=== PATIENT | female | born 1940 | race African-American/Black ===

== ENCOUNTER → 2016-05-27 | Outpatient (RCR) | payer MEDICARE, MEDICAID ==
[~2016-05-27] MED LIST: AMBIEN10 MG ORAL; AMBIEN10 MG PO; AMITRIPTYLINE H25 MG PO; ASPIRIN-LOW81 MG PO; BENAZEPRIL HCL20 MG PO; CIPRO250 MG ORAL; DIAZEPAM10 MG PO; DIAZEPAM5 MG PO; FLAGYL250 MG ORAL; GLUCOPHAGE500 MG PO; HYZAAR 100-12.1 EACH ORAL; LACTULOSE20 GM/301 ORAL; LEVAQUIN500 MG ORAL; METRONIDAZOLE500 MG ORAL; MIRALAX17 G2 ORAL; MORPHINE SULFAT60 MG PO; NORCO 10/3251 EA ORAL; NORVASC2.5 MG ORAL; ONDANSETRON ODT8 MG PO; SIMVASTATIN20 MG PO; SOMA350 MG PO; SULFASALAZINE500 MG ORAL; TYLENOL #31 TAB PO; sleeping pill PO
== END | disposition home or self-care (01) ==
LOC: PTY 10:30
DX: M54.6 Pain in thoracic spine (principal); M54.2 Cervicalgia
CPT/HCPCS: 97110; 97162; G0283; G8978; G8979

== ENCOUNTER 2016-06-10 10:04 | Outpatient (RCR) | payer MEDICARE, MEDICAID | END 2016-06-27 | disposition home or self-care (01) | LOC: PTY 10:04 | DX: M54.6 Pain in thoracic spine (principal) | CPT/HCPCS: 97110; G0283 ==

== ENCOUNTER 2016-07-01 10:30 | Outpatient (RCR) | payer MEDICARE, MEDICAID | END 2016-07-27 | disposition home or self-care (01) | LOC: PTY 10:30 | DX: M54.6 Pain in thoracic spine (principal); M54.2 Cervicalgia | CPT/HCPCS: 97110; G0283 ==

== ENCOUNTER 2016-08-05 09:30 | Outpatient (RCR) | payer MEDICARE, MEDICAID ==
[2016-08-13] MEDS ORDERED: DIOVAN HCT 1601 EAC1 ORAL (13:55)
[2016-08-13] MEDS ORDERED: AMLODIPINE BESYL5 MG ORAL (20:26)
[2016-08-13] MEDS ORDERED: POLYETHYLENE GL17 GM ORAL (20:35)
[2016-08-13] MEDS ORDERED: DIAZEPAM10 MG ORAL (20:39)
[2016-08-13] MEDS ORDERED: DIOVAN160 MG ORAL (20:40)
[2016-08-13] MEDS ORDERED: CELEBREX200 MG ORAL (20:40)
[2016-08-13] MEDS ORDERED: TIZANIDINE HCL4 MG ORAL (20:49)
[2016-08-13] MEDS ORDERED: MS CONTIN60 MG ORAL (20:49)
[2016-08-13] MEDS ORDERED: NORCO 10-325 T1 EACH ORAL (20:49)
[2016-08-13] MEDS ORDERED: LINZESS145 MCG PO (20:49)
[2016-08-13] MEDS ORDERED: ZOFRAN ODT8 MG ORAL (20:49)
[2016-08-13] MEDS ORDERED: SYSTANE 0.3-0.1 EAC1 OP (20:54)
[2016-08-13] MEDS ORDERED: RESTASIS1 EACH BOTH EYES (20:54)
[2016-08-13] MEDS ORDERED: OMEGA-31000 M1 PO (20:56)
[2016-08-15] MEDS ORDERED: CEFUROXIME500 MG PO (16:47)
== END 2016-08-27 | disposition home or self-care (01) ==
LOC: PTY 09:30
DX: M54.6 Pain in thoracic spine (principal); M54.2 Cervicalgia; R53.1 Weakness; M19.90 Unspecified osteoarthritis, unspecified site; Z96.659 Presence of unspecified artificial knee joint
CPT/HCPCS: 97110; G0283

== ENCOUNTER 2016-08-13 13:45 | Inpatient (IN) | payer MEDICARE, MEDICAID ==
[~2016-08-13] VITALS: Ht 160 cm; Wt 81.6 kg
[2016-08-13] MEDS ORDERED: DIOVAN HCT 1601 EAC1 ORAL (13:55)
[2016-08-13 14:01] VITALS: BP 137/79
[2016-08-13] MEDS ORDERED: Morphine Sulfate 4mg/ml Inj IVP ONE ×2 (14:30→17:15)
[2016-08-13 14:45] LABS: BASOPHILS % (AUTO) 1.3 % (0.0-2.0); EOSINOPHILS % (AUTO) 0.8 % (0.0-3.0); MEAN CORPUSCULAR HEMOGLOBIN 31.2 PG (27.0-31.0); MEAN CORPUSCULAR HGB CONC 32.6 G/DL (32.0-36.0); MEAN CORPUSCULAR VOLUME 96 FL (80-99); MONOCYTES % (AUTO) 16.6 % (1.0-10.0); NEUTROPHILS % (AUTO) 62.3 % (45.0-75.0); PLATELET COUNT 200 K/UL (150-450); RED BLOOD COUNT 4.29 M/UL (4.20-5.40); RED CELL DISTRIBUTION WIDTH 12.2 % (11.6-14.8); WHITE BLOOD COUNT 9.7 K/UL (4.8-10.8)
[2016-08-13 14:48] LABS: APPEARANCE,URINE TURBID; KETONES,URINE NEGATIVE (NEGATIVE); LEUKOCYTE ESTERASE ,URINE 3+ (NEGATIVE); NITRITE,URINE POSITIVE (NEGATIVE); PH,URINE 5 (4.5-8.0); PROTEIN,URINE 4+ (NEGATIVE); UROBILINOGEN,URINE NORMAL MG/DL (0.0-1.0)
[2016-08-13 14:59] LABS: ALANINE AMINOTRANSFERASE 15 U/L (3-33); ALBUMIN/GLOBULIN RATIO 0.9 (1.0-2.7); ANION GAP 12 (5-15); ASPARTATE AMINO TRANSFERASE 24 U/L (5-40); CALCIUM 9.4 mg/dL (8.6-10.2); CARBON DIOXIDE 27 mEQ/L (20-30); CHLORIDE 101 mEQ/L (98-107); CREATININE 1.1 mg/dL (0.5-0.9); HEMOLYSIS 54; LIPASE 39 U/L (< 60); POTASSIUM 4.5 mEQ/L (3.4-4.9); SODIUM 140 mEQ/L (135-145); TOTAL PROTEIN 7.7 g/dL (6.6-8.7)
[2016-08-13 15:16] LABS: BACTERIA,URINE MANY /HPF; SQUAMOUS EPITHELIAL CELL,UR FEW /LPF (NONE/OCC); WBC,URINE TNTC /HPF (0 - 2)
[2016-08-13 16:12] VITALS: BP 104/66
--- NOTE | 2016-08-13 18:11 | Emergency Room Report ---
History of Present Illness General Chief Complaint: Abdominal Pain Source: Patient Present Illness HPI 75-year-old female presents ED complaining of abdominal pain x5 days. Notes pain is left lower quadrant, sharp, 8/10, nonradiating. Notes nausea and vomiting. Notes some diarrhea. Patient notes history of diverticulitis. Notes some chills. Denies fever. Denies chest pain or shortness of breath. GI Dr Hughes for patient ED for evaluation. No other aggravating relieving factors. Denies any other associated symptoms Allergies: Coded Allergies: AMITRIPTYLINE (Verified Allergy, Unknown, ANXIETY, 07/11/16) Patient History Past Medical History: DM, HTN, other - diverticulitis Past Surgical History: none Pertinent Family History: none Social History: Denies: alcohol use, drug use, smoking Now: No Immunizations: UTD Reviewed Nursing Documentation: PMH: Agreed, PSxH: Agreed Nursing Documentation-PMH Past Medical History: No History, Except For Hx Cardiac Problems: Yes Hx Hypertension: Yes Hx Diabetes: Yes Hx Cancer: No Hx Gastrointestinal Problems: Yes - diverticulitis Hx Neurological Problems: No Hx Headaches: Yes Review of Systems All Other Systems: negative except mentioned in HPI Physical Exam Vital Signs Date Time Temp Pulse Resp B/P Pulse Ox O2 Delivery O2 Flow Rate FiO2 08/13/16 13:50 97.9 96 18 137/79 94 Room Air Sp02 EP Interpretation: reviewed, normal General Appearance: no apparent distress, alert, GCS 15, non-toxic Head: normocephalic Eyes: bilateral eye PERRL, bilateral eye normal inspection ENT: normal ENT inspection Neck: normal inspection Respiratory: chest non-tender, lungs clear, normal breath sounds, speaking full sentences Cardiovascular #1: regular rate, rhythm, no edema Gastrointestinal: normal bowel sounds, soft, non-distended, no guarding, no rebound, tenderness - LLQ Rectal: deferred Genitourinary: no CVA tenderness Musculoskeletal: normal inspection Neurologic: alert, oriented x3, responsive, motor strength/tone normal, sensory intact, speech normal Psychiatric: normal inspection Skin: normal inspection Lymphatic: normal inspection Medical Decision Making Diagnostic Impression: Primary Impression: UTI (urinary tract infection) Qualified Codes: N39.0 - Urinary tract infection, site not specified Additional Impression: Intractable abdominal pain ER Course Hospital Course 75-year-old female presents to ED complaining of lower abdominal pain, chills,. 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 After initial history and physical I ordered labs, IV fluids, UA, pain medication and CT scan Labs - no leukocytosis, Hb/Hct stable. electrolytes ok. UA shows + bacteria CT abdomen and pelvis - diverticulitis, no evidence of diverticulitis, no acute process Patient continues to have pain requiring additional round of pain medication. Notes nausea unable to tolerate by mouth intake. Discussed case with GI Dr. Hughes; he is also concerned about a possibility of ischemic colitis. Recommend antibiotics for UTI and IV fluids and n.p.o. PMD is Dr. Fowler; he asked that we admit patient to Dr. Doan Case discussed with Dr. Kaufman and he agreed to accept the patient to his service for further care and support I feel this is a highly complex case requiring extensive working including EKG/ Rhythm strip, Xray/CT/US, Blood/urine lab work, repeat exams while in ED, and administration of strong opiates/narcotics for pain control, admission to hospital or close patient follow up. Diagnosis - UTI, intractable abd pain Patient admitted to floor in serious condition Labs Test 08/13/16 14:05 08/13/16 14:15 08/13/16 14:19 Urine Color Yellow Urine Appearance Turbid Urine pH 5 (4.5-8.0) Urine Specific [place] 1.015 (1.005-1.035) Urine Protein 4+ (NEGATIVE) Urine Glucose (UA) Negative (NEGATIVE) Urine Ketones Negative (NEGATIVE) Urine Occult Blood 5+ (NEGATIVE) Urine Nitrite Positive (NEGATIVE) Urine Bilirubin Negative (NEGATIVE) Urine Urobilinogen Normal MG/DL (0.0-1.0) Urine Leukocyte Esterase 3+ (NEGATIVE) Urine RBC 5-10 /HPF (0 - 2) Urine WBC Tntc /HPF (0 - 2) Urine Squamous Epithelial Cells Few /LPF (NONE/OCC) Urine Bacteria Many /HPF (NONE) White Blood Count 9.7 K/UL (4.8-10.8) Red Blood Count 4.29 M/UL (4.20-5.40) Hemoglobin 13.4 G/DL (12.0-16.0) Hematocrit 41.1 % (37.0-47.0) Mean Corpuscular Volume 96 FL (80-99) Mean Corpuscular Hemoglobin 31.2 PG (27.0-31.0) Mean Corpuscular Hemoglobin Concent 32.6 G/DL (32.0-36.0) Red Cell Distribution Width 12.2 % (11.6-14.8) Platelet Count 200 K/UL (150-450) Mean Platelet Volume 8.0 FL (6.5-10.1) Neutrophils (%) (Auto) 62.3 % (45.0-75.0) Lymphocytes (%) (Auto) 19.0 % (20.0-45.0) Monocytes (%) (Auto) 16.6 % (1.0-10.0) Eosinophils (%) (Auto) 0.8 % (0.0-3.0) Basophils (%) (Auto) 1.3 % (0.0-2.0) Sodium Level 140 mEQ/L (135-145) Potassium Level 4.5 mEQ/L (3.4-4.9) Chloride Level 101 mEQ/L (98-107) Carbon Dioxide Level 27 mEQ/L (20-30) Anion Gap 12 (5-15) Blood Urea Nitrogen 27 mg/dL (7-23) Creatinine 1.1 mg/dL (0.5-0.9) Estimat Glomerular Filtration Rate mL/min (>60) Glucose Level 183 mg/dL (74-106) Calcium Level 9.4 mg/dL (8.6-10.2) Total Bilirubin 0.4 mg/dL (0.0-1.2) Aspartate Amino Transf (AST/SGOT) 24 U/L (5-40) Alanine Aminotransferase (ALT/SGPT) 15 U/L (3-33) Alkaline Phosphatase 67 U/L (35-104) Total Protein 7.7 g/dL (6.6-8.7) Albumin 3.7 g/dL (3.5-5.2) Globulin 4.0 g/dL Albumin/Globulin Ratio 0.9 (1.0-2.7) Lipase 39 U/L (< 60) CT/MRI/US Diagnostic Results CT/MRI/US Diagnostic Results : Imaging Test Ordered: CT A/P Impression diverticula, no diverticulitis. no other acute process identified Last Vital Signs Date Time Temp Pulse Resp B/P Pulse Ox O2 Delivery O2 Flow Rate FiO2 08/13/16 16:12 93 18 104/66 94 Room Air 08/13/16 16:12 97.9 Status: improved Disposition: ADMITTED INPATIENT Condition: Serious Referrals: DALJIT FOWLER (PCP) HEVER ALTAMIRANO M.D. August 13, 2016 18:11
[2016-08-13] MEDS ORDERED: cefTRIAXone 1 GM in NS 55 ML IVPB ONE (18:30)
[2016-08-13 19:11] VITALS: BP 111/71
[2016-08-13] MEDS ORDERED: AMLODIPINE BESYL5 MG ORAL (20:26)
[2016-08-13] MEDS ORDERED: Morphine Sulfate 2mg/ml Inj IVP PRN (20:30)
[2016-08-13] MEDS ORDERED: Morphine Sulfate 4mg/ml Inj IVP PRN ×2 (20:30→21:45)
[2016-08-13] MEDS ORDERED: Acetaminophen 650 MG SUPP RECTAL PRN (20:30)
[2016-08-13] MEDS ORDERED: POLYETHYLENE GL17 GM ORAL (20:35)
[2016-08-13] MEDS ORDERED: DIAZEPAM10 MG ORAL (20:39)
[2016-08-13] MEDS ORDERED: CELEBREX200 MG ORAL (20:40)
[2016-08-13] MEDS ORDERED: DIOVAN160 MG ORAL (20:40)
[2016-08-13] MEDS ORDERED: TIZANIDINE HCL4 MG ORAL (20:49)
[2016-08-13] MEDS ORDERED: LINZESS145 MCG PO (20:49)
[2016-08-13] MEDS ORDERED: ZOFRAN ODT8 MG ORAL (20:49)
[2016-08-13] MEDS ORDERED: NORCO 10-325 T1 EACH ORAL (20:49)
[2016-08-13] MEDS ORDERED: MS CONTIN60 MG ORAL (20:49)
[2016-08-13] MEDS ORDERED: SYSTANE 0.3-0.1 EAC1 OP (20:54)
[2016-08-13] MEDS ORDERED: RESTASIS1 EACH BOTH EYES (20:54)
[2016-08-13] MEDS ORDERED: OMEGA-31000 M1 PO (20:56)
[2016-08-13] MEDS: NovoLOG Insulin Flexpen SUBQ SCH (21:00)
[2016-08-13 21:59] VITALS: BP 138/66
[2016-08-13] MEDS: Morphine Sulfate 2mg/ml Inj IVP PRN (22:37)
--- NOTE | 2016-08-13 23:58 | General Progress Note ---
Assessment/Plan Assessment/Plan GI CONSULT Assessment - LLQ pain , possibly recurrent ischemic colitis - Diverticulosis - HTN - NIDDM - h/o diverticulitits - Melanosis Recommendations - IVF - follow abd exam - clear liquids - laxative Subjective Allergies: Coded Allergies: AMITRIPTYLINE (Verified Allergy, Unknown, ANXIETY, 07/11/16) Objective Last 24 Hour Vital Signs Date Time Temp Pulse Resp B/P Pulse Ox O2 Delivery O2 Flow Rate FiO2 08/13/16 21:59 97.9 86 18 138/66 95 Room Air 08/13/16 21:22 73 14 128/85 99 Room Air 08/13/16 19:11 89 18 111/71 99 Room Air 08/13/16 19:04 97.9 08/13/16 16:12 93 18 104/66 94 Room Air 08/13/16 16:12 97.9 08/13/16 14:01 97.9 18 137/79 94 Room Air 08/13/16 13:50 97.9 96 18 137/79 94 Room Air Laboratory Tests 08/13/16 14:05: Urine Color Yellow, Urine Appearance Turbid, Urine pH 5, Urine Specific [place] 1.015, Urine Protein 4+H, Urine Glucose (UA) Negative, Urine Ketones Negative, Urine Occult Blood 5+H, Urine Nitrite PositiveH, Urine Bilirubin Negative, Urine Urobilinogen Normal, Urine Leukocyte Esterase 3+H, Urine RBC 5-10H, Urine WBC TntcH, Urine Squamous Epithelial Cells Few, Urine Bacteria ManyH 08/13/16 14:15: White Blood Count 9.7, Red Blood Count 4.29, Hemoglobin 13.4, Hematocrit 41.1, Mean Corpuscular Volume 96, Mean Corpuscular Hemoglobin 31.2H, Mean Corpuscular Hemoglobin Concent 32.6, Red Cell Distribution Width 12.2, Platelet Count 200, Mean Platelet Volume 8.0, Neutrophils (%) (Auto) 62.3, Lymphocytes (%) (Auto) 19.0L, Monocytes (%) (Auto) 16.6H, Eosinophils (%) (Auto) 0.8, Basophils (%) ( Auto) 1.3 08/13/16 14:19: Sodium Level 140, Potassium Level 4.5, Chloride Level 101, Carbon Dioxide Level 27, Anion Gap 12, Blood Urea Nitrogen 27H, Creatinine 1.1H, Estimat Glomerular Filtration Rate , Glucose Level 183H, Calcium Level 9.4, Total Bilirubin 0.4, Aspartate Amino Transf (AST/SGOT) 24, Alanine Aminotransferase (ALT/SGPT) 15, Alkaline Phosphatase 67, Total Protein 7.7, Albumin 3.7, Globulin 4.0, Albumin/ Globulin Ratio 0.9L, Lipase 39 08/13/16 21:15: Lactic Acid Level 0.80 Height (Feet): 5 Height (Inches): 3.00 Weight (Pounds): 180 PATY VENTURA August 13, 2016 23:58
[2016-08-14] VITALS: BP_SYST 110; BP_SYST 124; BP_DIAS 54; BP_DIAS 80
[2016-08-14 04:00] VITALS: BP 104/74
[2016-08-14] MEDS: Morphine Sulfate 2mg/ml Inj IVP PRN (04:18)
--- NOTE | 2016-08-14 05:41 | Consultation ---
DATE OF CONSULTATION: 08/13/2016 GASTROLOGY CONSULTATION CHIEF COMPLAINT: The patient is being admitted for abdominal pain. HISTORY OF PRESENT ILLNESS: The patient is a pleasant 75-year-old woman, who came to my office today for a 5-day history of feeling sick. She states that she feels lightheaded, nauseous, and has lower left-sided abdominal pain. She had some blood streaks from the toilet paper when she wipes it. She was unable to keep much fluid down. She was examined and also was found to have left lower quadrant tenderness to palpation. Previously, she has had a history of some diverticulosis, which was seen on CT scan and also colonoscopy. She also was found to have left-sided course of granular mucosa consistent with ischemic colitis. This was about a year ago where she was felt to have ischemic colitis or diverticulitis and therefore sent to the emergency room where she underwent evaluation with CT scan. There was no obvious diverticulitis on CT scan, but the patient was readmitted for hydration for possibility of recurrent ischemic colitis. PAST MEDICAL HISTORY: History of ischemic colitis, history of diverticulosis, hypertension, mxi-ecmzqya-[id number] diabetes mellitus, history of anxiety, and history of melanosis. PAST SURGICAL HISTORY: Status post arthroscopic knee surgery bilaterally and history of laparoscopic cholecystectomy. ALLERGIES: None. OUTPATIENT MEDICATIONS: Include metformin, MiraLax, Linzess, simvastatin, Celebrex, aspirin, Valsartan, and morphine. FAMILY HISTORY: Noncontributory. SOCIAL HISTORY: The patient does not smoke or drink alcohol. REVIEW OF SYSTEMS: Otherwise negative. PHYSICAL EXAMINATION: GENERAL: This is a pleasant woman, seen in the office and subsequently was admitted to the hospital. HEENT: Normocephalic and atraumatic. Sclerae anicteric. Oropharynx is clear. NECK: Supple. CHEST: Clear to auscultation. CARDIOVASCULAR: Revealed regular rate. ABDOMEN: Soft. Good bowel sounds. There is no organomegaly. There was definite left lower quadrant tenderness to palpation without significant rebound or guarding. EXTREMITIES: Revealed no edema. NEUROLOGIC: Nonfocal. LABORATORY DATA: Data from the hospital where CT scan was noted. ASSESSMENT: This patient presents with left lower quadrant abdominal pain and diverticulosis, but without radiographic evidence of diverticulitis. Given the nausea and the left-sided pain, the patient may have recurrent colonic ischemia. disease because of poor oral hydration and oral intake. The patient should be admitted to the hospital for intravenous hydration and followup examinations. Should she improve, then she can be discharged home on oral hydration therapy. The antibiotics can be given for urinary tract infection as well. RECOMMENDATIONS: Per above discussion and per orders written in the chart. Thank you for asking me to participate in the care of this patient patient. Anne Hughes M.D. DR: JONES JOB#: [id number] CC:
[2016-08-14] MEDS: NovoLOG Insulin Flexpen SUBQ SCH ×4 (06:19→21:00)
--- NOTE | 2016-08-14 07:51 | General Progress Note ---
Assessment/Plan Assessment/Plan Assessment - LLQ pain , possibly recurrent ischemic colitis - Diverticulosis - HTN - NIDDM - h/o diverticulitits - Melanosis Recommendations - IVF - follow abd exam - clear liquids - laxative Subjective Allergies: Coded Allergies: AMITRIPTYLINE (Verified Allergy, Unknown, ANXIETY, 07/11/16) Subjective Feels better less abd pain Objective Last 24 Hour Vital Signs Date Time Temp Pulse Resp B/P Pulse Ox O2 Delivery O2 Flow Rate FiO2 08/14/16 04:00 98.2 96 18 104/74 93 Room Air 08/14/16 00:00 97.3 95 18 124/80 99 Room Air 08/14/16 00:00 99.0 77 18 110/54 94 Room Air 08/13/16 21:59 97.9 86 18 138/66 95 Room Air 08/13/16 21:22 73 14 128/85 99 Room Air 08/13/16 19:11 89 18 111/71 99 Room Air 08/13/16 19:04 97.9 08/13/16 16:12 93 18 104/66 94 Room Air 08/13/16 16:12 97.9 08/13/16 14:01 97.9 18 137/79 94 Room Air 08/13/16 13:50 97.9 96 18 137/79 94 Room Air Intake and Output 08/13/16 08/14/16 19:00 07:00 Intake Total 0 ml 580 ml Balance 0 ml 580 ml Intake Oral 0 ml IV Total 580 ml # Voids 1 Laboratory Tests 08/13/16 14:05: Urine Color Yellow, Urine Appearance Turbid, Urine pH 5, Urine Specific [place] 1.015, Urine Protein 4+H, Urine Glucose (UA) Negative, Urine Ketones Negative, Urine Occult Blood 5+H, Urine Nitrite PositiveH, Urine Bilirubin Negative, Urine Urobilinogen Normal, Urine Leukocyte Esterase 3+H, Urine RBC 5-10H, Urine WBC TntcH, Urine Squamous Epithelial Cells Few, Urine Bacteria ManyH 08/13/16 14:15: White Blood Count 9.7, Red Blood Count 4.29, Hemoglobin 13.4, Hematocrit 41.1, Mean Corpuscular Volume 96, Mean Corpuscular Hemoglobin 31.2H, Mean Corpuscular Hemoglobin Concent 32.6, Red Cell Distribution Width 12.2, Platelet Count 200, Mean Platelet Volume 8.0, Neutrophils (%) (Auto) 62.3, Lymphocytes (%) (Auto) 19.0L, Monocytes (%) (Auto) 16.6H, Eosinophils (%) (Auto) 0.8, Basophils (%) ( Auto) 1.3 08/13/16 14:19: Sodium Level 140, Potassium Level 4.5, Chloride Level 101, Carbon Dioxide Level 27, Anion Gap 12, Blood Urea Nitrogen 27H, Creatinine 1.1H, Estimat Glomerular Filtration Rate , Glucose Level 183H, Calcium Level 9.4, Total Bilirubin 0.4, Aspartate Amino Transf (AST/SGOT) 24, Alanine Aminotransferase (ALT/SGPT) 15, Alkaline Phosphatase 67, Total Protein 7.7, Albumin 3.7, Globulin 4.0, Albumin/ Globulin Ratio 0.9L, Lipase 39 08/13/16 21:15: Lactic Acid Level 0.80 Height (Feet): 5 Height (Inches): 3.00 Weight (Pounds): 180 Objective WDWN AA woman NCAT supple CTA RRR soft ND milder/less LLQ TTP no edema nonfocal PATY VENTURA August 14, 2016 07:51
[2016-08-14 07:56] VITALS: BP 102/60
[2016-08-14] MEDS ORDERED: Sorbitol Solution UD 30ml ORAL ONE (08:00)
[2016-08-14 08:11] LABS: BASOPHILS % (AUTO) 1.5 % (0.0-2.0); LYMPHOCYTES % (AUTO) 30.5 % (20.0-45.0); MEAN CORPUSCULAR HEMOGLOBIN 30.9 PG (27.0-31.0); MEAN CORPUSCULAR HGB CONC 32.9 G/DL (32.0-36.0); MEAN CORPUSCULAR VOLUME 94 FL (80-99); MONOCYTES % (AUTO) 18.4 % (1.0-10.0); NEUTROPHILS % (AUTO) 47.6 % (45.0-75.0); PLATELET COUNT 191 K/UL (150-450); RED BLOOD COUNT 3.97 M/UL (4.20-5.40); RED CELL DISTRIBUTION WIDTH 12.1 % (11.6-14.8); WHITE BLOOD COUNT 8.5 K/UL (4.8-10.8)
[2016-08-14 08:17] LABS: ANION GAP 15 (5-15); CALCIUM 9.1 mg/dL (8.6-10.2); CARBON DIOXIDE 23 mEQ/L (20-30); CHLORIDE 105 mEQ/L (98-107); HEMOLYSIS 2; POTASSIUM 4.5 mEQ/L (3.4-4.9); SODIUM 143 mEQ/L (135-145)
--- NOTE | 2016-08-14 08:52 | History and Physical ---
History of Present Illness General Date patient seen: August 14, 2016 Time patient seen: 08:52 Reason for Hospitalization: Abdominal Pain Present Illness Allergies: Coded Allergies: AMITRIPTYLINE (Verified Allergy, Unknown, ANXIETY, 07/11/16) Medication History Scheduled Amlodipine Besylate* (Amlodipine Besylate*), 5 MG ORAL DAILY, (Reported) Aspirin (Aspirin EC), 81 MG PO DAILY, (Reported) Celecoxib* (Celebrex*), 200 MG ORAL DAILY, (Reported) Cyclosporine (Restasis), 1 DROP BOTH EYES EVERY 12 HOURS, (Reported) Linaclotide (Linzess), 145 MCG PO EVERY OTHER DAY, (Reported) Metformin Hcl* (Glucophage*), 500 MG PO BID, (Reported) [place]-3 Fatty Acids ([place]-3), 1,000 MG PO DAILY, (Reported) Polyethylene Glycol 3350* (Polyethylene Glycol 3350*), 17 GM ORAL EVERY OTHER DAY, (Reported) Simvastatin (Zocor), 20 MG PO QHS, (Reported) Sulfasalazine* (Azulfidine*), 1,500 MG ORAL BID, (Reported) Tizanidine Hcl* (Zanaflex*), 4 MG ORAL THREE TIMES A DAY, (Reported) Valsartan (Diovan), 160 MG ORAL DAILY, (Reported) Scheduled PRN Diazepam* (Diazepam*), 10 MG ORAL for For Anxiety, (Reported) Hydrocodone Bit/Acetaminophen 10-325* ([place] 10-325*), 1 TAB ORAL for For Pain, (Reported) Morphine Sulfate* (Ms Contin*), 60 MG ORAL for For Pain, (Reported) Ondansetron Odt* (Zofran Odt*), 8 MG ORAL for Nausea & Vomiting, (Reported) Propylene Glycol/Peg 400/Pf (Systane 0.3-0.4% Eye Drops), 1 EACH OP FOUR TIMES A DAY PRN for Dry Eyes, (Reported) Zolpidem Tartrate* (Ambien*), 10 MG ORAL BEDTIME PRN for Insomnia, (Reported) Discontinued Medications Ciprofloxacin HCl (Cipro), 250 MG ORAL BID, (Reported) Discontinued Reason: Therapy completed Patient History Healthcare decision maker self Resuscitation status Full Code Advanced Directive on File No Physical Exam Last 24 Hour Vital Signs Date Time Temp Pulse Resp B/P Pulse Ox O2 Delivery O2 Flow Rate FiO2 08/14/16 07:56 98.1 76 22 102/60 97 Room Air 08/14/16 04:00 98.2 96 18 104/74 93 Room Air 08/14/16 00:00 97.3 95 18 124/80 99 Room Air 08/14/16 00:00 99.0 77 18 110/54 94 Room Air 08/13/16 21:59 97.9 86 18 138/66 95 Room Air 08/13/16 21:22 73 14 128/85 99 Room Air 08/13/16 19:11 89 18 111/71 99 Room Air 08/13/16 19:04 97.9 08/13/16 16:12 93 18 104/66 94 Room Air 08/13/16 16:12 97.9 08/13/16 14:01 97.9 18 137/79 94 Room Air 08/13/16 13:50 97.9 96 18 137/79 94 Room Air Intake and Output 08/13/16 08/14/16 19:00 07:00 Intake Total 0 ml 580 ml Balance 0 ml 580 ml Intake Oral 0 ml IV Total 580 ml # Voids 1 Laboratory Tests Test 08/13/16 14:05 08/13/16 14:15 08/13/16 14:19 08/13/16 21:15 Urine Color Yellow Urine Appearance Turbid Urine pH 5 (4.5-8.0) Urine Specific [place] 1.015 (1.005-1.035) Urine Protein 4+ (NEGATIVE) H Urine Glucose (UA) Negative (NEGATIVE) Urine Ketones Negative (NEGATIVE) Urine Occult Blood 5+ (NEGATIVE) H Urine Nitrite Positive (NEGATIVE) H Urine Bilirubin Negative (NEGATIVE) Urine Urobilinogen Normal MG/DL (0.0-1.0) Urine Leukocyte Esterase 3+ (NEGATIVE) H Urine RBC 5-10 /HPF (0 - 2) H Urine WBC Tntc /HPF (0 - 2) H Urine Squamous Epithelial Cells Few /LPF (NONE/OCC) Urine Bacteria Many /HPF (NONE) H White Blood Count 9.7 K/UL (4.8-10.8) Red Blood Count 4.29 M/UL (4.20-5.40) Hemoglobin 13.4 G/DL (12.0-16.0) Hematocrit 41.1 % (37.0-47.0) Mean Corpuscular Volume 96 FL (80-99) Mean Corpuscular Hemoglobin 31.2 PG (27.0-31.0) H Mean Corpuscular Hemoglobin Concent 32.6 G/DL (32.0-36.0) Red Cell Distribution Width 12.2 % (11.6-14.8) Platelet Count 200 K/UL (150-450) Mean Platelet Volume 8.0 FL (6.5-10.1) Neutrophils (%) (Auto) 62.3 % (45.0-75.0) Lymphocytes (%) (Auto) 19.0 % (20.0-45.0) L Monocytes (%) (Auto) 16.6 % (1.0-10.0) H Eosinophils (%) (Auto) 0.8 % (0.0-3.0) Basophils (%) (Auto) 1.3 % (0.0-2.0) Sodium Level 140 mEQ/L (135-145) Potassium Level 4.5 mEQ/L (3.4-4.9) Chloride Level 101 mEQ/L (98-107) Carbon Dioxide Level 27 mEQ/L (20-30) Anion Gap 12 (5-15) Blood Urea Nitrogen 27 mg/dL (7-23) H Creatinine 1.1 mg/dL (0.5-0.9) H Estimat Glomerular Filtration Rate mL/min (>60) Glucose Level 183 mg/dL (74-106) H Calcium Level 9.4 mg/dL (8.6-10.2) Total Bilirubin 0.4 mg/dL (0.0-1.2) Aspartate Amino Transf (AST/SGOT) 24 U/L (5-40) Alanine Aminotransferase (ALT/SGPT) 15 U/L (3-33) Alkaline Phosphatase 67 U/L (35-104) Total Protein 7.7 g/dL (6.6-8.7) Albumin 3.7 g/dL (3.5-5.2) Globulin 4.0 g/dL Albumin/Globulin Ratio 0.9 (1.0-2.7) L Lipase 39 U/L (< 60) Lactic Acid Level 0.80 mmol/L (0.66-2.22) Test 08/14/16 07:35 White Blood Count 8.5 K/UL (4.8-10.8) Red Blood Count 3.97 M/UL (4.20-5.40) L Hemoglobin 12.3 G/DL (12.0-16.0) Hematocrit 37.4 % (37.0-47.0) Mean Corpuscular Volume 94 FL (80-99) Mean Corpuscular Hemoglobin 30.9 PG (27.0-31.0) Mean Corpuscular Hemoglobin Concent 32.9 G/DL (32.0-36.0) Red Cell Distribution Width 12.1 % (11.6-14.8) Platelet Count 191 K/UL (150-450) Mean Platelet Volume 8.0 FL (6.5-10.1) Neutrophils (%) (Auto) 47.6 % (45.0-75.0) Lymphocytes (%) (Auto) 30.5 % (20.0-45.0) Monocytes (%) (Auto) 18.4 % (1.0-10.0) H Eosinophils (%) (Auto) 2.0 % (0.0-3.0) Basophils (%) (Auto) 1.5 % (0.0-2.0) Sodium Level 143 mEQ/L (135-145) Potassium Level 4.5 mEQ/L (3.4-4.9) Chloride Level 105 mEQ/L (98-107) Carbon Dioxide Level 23 mEQ/L (20-30) Anion Gap 15 (5-15) Blood Urea Nitrogen 20 mg/dL (7-23) Creatinine 1.0 mg/dL (0.5-0.9) H Estimat Glomerular Filtration Rate mL/min (>60) Glucose Level 126 mg/dL (74-106) H Lactic Acid Level 0.60 mmol/L (0.66-2.22) L Calcium Level 9.1 mg/dL (8.6-10.2) Microbiology Date/Time Source Procedure Growth Status 08/13/16 14:05 Urine,Clean Catch Urine Culture - Preliminary Gram Negative Bacillus 1 Resulted Height (Feet): 5 Height (Inches): 3.00 Weight (Pounds): 180 Medications Current Medications Medications (Trade) Dose Ordered Sig/Janna Route PRN Reason Start Time Stop Time Status Last Admin Dose Admin Acetaminophen (Tylenol) 650 mg PRN PRN RECTAL Mild Pain/Temp > 100.5 08/13/16 20:30 09/12/16 20:29 Ceftriaxone Sodium/Dextrose (Rocephin/D5W) 55 ml @ 110 mls/hr Q24H IVPB 08/14/16 18:00 08/21/16 17:59 Dextrose (Dextrose 50%) STAT PRN IV Hypoglycemia 08/13/16 20:30 09/12/16 20:29 Diphenhydramine HCl (Benadryl) 25 mg Q6H PRN ORAL Itching/Pruritis 08/13/16 20:30 09/12/16 20:29 08/13/16 22:36 Insulin Aspart (NovoLOG) BEFORE MEALS AND HS SUBQ 08/13/16 21:00 09/12/16 20:59 Morphine Sulfate (Morphine Sulfate) 2 mg Q4H PRN IVP Moderate Pain (Pain Scale 4-6) 08/13/16 21:45 08/20/16 21:44 08/14/16 04:18 Morphine Sulfate 4 mg 4 mg Q4H PRN IVP SEVERE PAIN 08/13/16 21:45 08/20/16 21:44 Ondansetron HCl (Zofran) 4 mg Q6H PRN IVP Nausea & Vomiting 08/13/16 20:30 09/12/16 20:29 Sodium Chloride (Sodium Chloride 1000ml bag) 1,000 ml @ 75 mls/hr [id number] IVLG 08/13/16 22:00 09/12/16 21:59 08/13/16 22:38 Audelia King M.D. August 14, 2016 08:52
--- NOTE | 2016-08-14 09:53 | Diagnostic Imaging Report ---
Indications: Abdominal pain Technique: Continuous helical CT imaging of the abdomen and pelvis was performed with automatic exposure control following administration of oral and intravenous nonionic iodine contrast, on a Siemens sensation [address] scanner. Axial, coronal, and sagittal images were reconstructed at 5 mm slice thickness. CTDI volume(s): 19 mGy Total DLP: 968 mGy-cm Findings: Comparison: 05/10/2015, 12/13/2014, 10/23/2014, 08/21/2014 Oral contrast has passed throughout the gastrointestinal tract to the level of mid to distal small bowel. Entire tract remains nondilated. Appendix not identified. Moderate colonic fecal content. Multiple left colonic diverticula. No obvious mural thickening, adjacent stranding, extraluminal gas or fluid collections. Absence of gallbladder, bile duct dilation to ampulla of Vater without obvious stone or mass, bilateral renal cortical low-attenuation foci compatible with cysts, diffuse arteriosclerotic plaquing, 2.8 cm fusiform ectasia of the infrarenal abdominal aorta all unchanged. Remainder visualized abdominopelvic anatomy demonstrates no other obvious acute abnormality. Small irregular pleural-based linear densities again noted in both lung bases. Degenerative changes again noted in lumbar, lower thoracic spine. IMPRESSION: No evidence of acute abdominopelvic disease, unchanged Stable chronic changes as described This correlates with [facility] preliminary report.
[2016-08-14 11:46] VITALS: BP 112/62
[2016-08-14 15:53] VITALS: BP 132/64
[2016-08-14] MEDS ORDERED: Zolpidem 5mg tab ORAL PRN (18:00)
[2016-08-14] MEDS: cefTRIAXone 1gm/D5W 55ml IVPB SCH ×2 (18:28)
[2016-08-14 21:00] VITALS: BP 161/64
[2016-08-15 00:45] VITALS: BP 136/71
[2016-08-15 04:00] VITALS: BP 155/84
[2016-08-15] MEDS: NovoLOG Insulin Flexpen SUBQ SCH ×3 (06:17→16:15)
[2016-08-15 08:00] VITALS: BP 133/69
[2016-08-15 12:01] VITALS: BP 146/68
[2016-08-15 16:00] VITALS: BP 132/68
[2016-08-15] MEDS ORDERED: CEFUROXIME500 MG PO (16:47)
--- NOTE | 2016-08-15 16:50 | Discharge Summary ---
Discharge Summary Hospital Course Date of Admission August 13, 2016 at 19:09 Date of Discharge 08/15/16 Admitting Diagnosis UTI, colitis HPI Sabina Blood is a 75 year old female who was admitted on August 13, 2016 at 19: 09 for Urinary Tract Infection, Colitis Discharge Discharge Disposition Patient was discharged to Discharge Diagnoses: Audelia King M.D. August 15, 2016 16:50
[2016-08-15] MEDS: cefTRIAXone 1gm/D5W 55ml IVPB SCH ×2 (17:58)
--- NOTE | 2016-08-15 18:17 | General Progress Note ---
Assessment/Plan Assessment/Plan Assessment - LLQ pain , possibly recurrent ischemic colitis - Diverticulosis - HTN - NIDDM - h/o diverticulitis - Melanosis Recommendations - push po fluids - follow abd exam - d/c planning - outpt f/u Subjective Allergies: Coded Allergies: AMITRIPTYLINE (Verified Allergy, Unknown, ANXIETY, 07/11/16) Subjective Feels better abd pain nearly resolved tolerating PO Objective Last 24 Hour Vital Signs Date Time Temp Pulse Resp B/P Pulse Ox O2 Delivery O2 Flow Rate FiO2 08/15/16 16:00 98.1 64 20 132/68 95 Room Air 08/15/16 12:01 98.1 58 20 146/68 95 Room Air 08/15/16 08:00 97.9 75 19 133/69 94 Room Air 08/15/16 04:00 99.0 100 18 155/84 100 Room Air 08/15/16 00:45 98.4 77 20 136/71 97 Room Air 08/15/16 00:45 98.4 08/14/16 21:00 97.5 63 20 161/64 99 Room Air Intake and Output 08/14/16 08/15/16 19:00 07:00 Intake Total 1315 ml 750 ml Balance 1315 ml 750 ml Intake Oral 960 ml 150 ml IV Total 355 ml 600 ml # Voids 3 2 # Bowel Movements 1 5 Height (Feet): 5 Height (Inches): 3.00 Weight (Pounds): 180 Objective WDWN AA woman NCAT supple CTA RRR soft ND milder/less LLQ TTP no edema nonfocal PATY VENTURA August 15, 2016 18:17
== END 2016-08-15 18:51 | disposition home or self-care (01) | DRG 394 ==
LOC: EMR 14:53 → 4E 19:09 → EDBEDREQ 20:06
DX: K55.9 Vascular disorder of intestine, unspecified (principal); N39.0 Urinary tract infection, site not specified; E11.9 Type 2 diabetes mellitus without complications; K57.90 Diverticulosis of intestine, part unspecified, without perforation or abscess without bleeding; I10 Essential (primary) hypertension; L81.4 Other melanin hyperpigmentation; Z88.8 Allergy status to other drugs, medicaments and biological substances; F41.9 Anxiety disorder, unspecified; R10.32 Left lower quadrant pain
CPT/HCPCS: 36415; 74177; 80048; 80053; 81003; 82962; 83605; 83690; 85025; 87086; 87181; J1815; J2405

== ENCOUNTER 2016-09-09 10:30 | Outpatient (RCR) | payer MEDICARE, MEDICAID ==
[~2016-09-09 10:30] MED LIST changes: +AMLODIPINE BESYL5 MG ORAL; +CEFUROXIME500 MG PO; +CELEBREX200 MG ORAL; +DIAZEPAM10 MG ORAL; +DIOVAN HCT 1601 EAC1 ORAL; +DIOVAN160 MG ORAL; +LINZESS145 MCG PO; +MS CONTIN60 MG ORAL; +NORCO 10-325 T1 EACH ORAL; +OMEGA-31000 M1 PO; +POLYETHYLENE GL17 GM ORAL; +RESTASIS1 EACH BOTH EYES; +SYSTANE 0.3-0.1 EAC1 OP; +TIZANIDINE HCL4 MG ORAL; +ZOFRAN ODT8 MG ORAL
== END 2016-09-26 | disposition home or self-care (01) ==
LOC: PTY 10:30
DX: M54.6 Pain in thoracic spine (principal); M54.2 Cervicalgia; R53.1 Weakness; M19.90 Unspecified osteoarthritis, unspecified site; Z96.659 Presence of unspecified artificial knee joint; K57.90 Diverticulosis of intestine, part unspecified, without perforation or abscess without bleeding; E11.9 Type 2 diabetes mellitus without complications
CPT/HCPCS: 97110; 97161; G0283; G8978; G8979

== ENCOUNTER 2016-11-18 11:00 | Outpatient (RCR) | payer MEDICARE, MEDICAID | END 2016-11-27 | disposition home or self-care (01) | LOC: PTY 11:00 | DX: M54.6 Pain in thoracic spine (principal); M54.2 Cervicalgia; R53.1 Weakness; M19.90 Unspecified osteoarthritis, unspecified site; E11.9 Type 2 diabetes mellitus without complications; Z79.84 Long term (current) use of oral hypoglycemic drugs; I10 Essential (primary) hypertension; Z96.659 Presence of unspecified artificial knee joint | CPT/HCPCS: 97110; G0283; G8978; G8979 ==

== ENCOUNTER 2016-12-23 11:00 | Outpatient (RCR) | payer MEDICARE, MEDICAID | END 2016-12-27 | disposition home or self-care (01) | LOC: PTY 11:00 | DX: M54.6 Pain in thoracic spine (principal); M54.2 Cervicalgia; R53.1 Weakness; M19.90 Unspecified osteoarthritis, unspecified site; E11.9 Type 2 diabetes mellitus without complications; Z79.84 Long term (current) use of oral hypoglycemic drugs; I10 Essential (primary) hypertension; Z96.659 Presence of unspecified artificial knee joint | CPT/HCPCS: 97110; G0283 ==

== ENCOUNTER 2017-01-06 10:21 | Outpatient (RCR) | payer MEDICARE, MEDICAID | END 2017-01-27 | disposition home or self-care (01) | LOC: PTY 10:21 | DX: M54.6 Pain in thoracic spine (principal); M54.2 Cervicalgia; M19.90 Unspecified osteoarthritis, unspecified site; E11.9 Type 2 diabetes mellitus without complications; I10 Essential (primary) hypertension; Z96.659 Presence of unspecified artificial knee joint | CPT/HCPCS: 97110; G0283; G8979; G8980 ==

== ENCOUNTER 2017-07-16 10:59 | Emergency (ER) | payer MEDICARE, MEDICAID ==
[~2017-07-16] VITALS: Ht 160 cm; Wt 81.6 kg
[2017-07-16] MEDS ORDERED: Morphine Sulfate 2mg/ml Inj IVP ONE (11:45)
[2017-07-16 12:43] LABS: BASOPHILS % (AUTO) 1.5 % (0.0-2.0); EOSINOPHILS % (AUTO) 0.5 % (0.0-3.0); HEMATOCRIT 38.9 % (37.0-47.0); HEMOGLOBIN 13.2 G/DL (12.0-16.0); LYMPHOCYTES % (AUTO) 27.1 % (20.0-45.0); MEAN CORPUSCULAR VOLUME 93 FL (80-99); MONOCYTES % (AUTO) 6.9 % (1.0-10.0); NEUTROPHILS % (AUTO) 64.1 % (45.0-75.0); PLATELET COUNT 212 K/UL (150-450); RED CELL DISTRIBUTION WIDTH 13.1 % (11.6-14.8); WHITE BLOOD COUNT 5.4 K/UL (4.8-10.8)
[2017-07-16 12:43] LABS: BILIRUBIN, URINE NEGATIVE (NEGATIVE); COLOR,URINE PALE YELLOW; GLUCOSE, URINE (UA) NEGATIVE (NEGATIVE); KETONES,URINE NEGATIVE (NEGATIVE); LEUKOCYTE ESTERASE ,URINE 1+ (NEGATIVE); NITRITE,URINE NEGATIVE (NEGATIVE); PH,URINE 7 (4.5-8.0); PROTEIN,URINE 3+ (NEGATIVE); UROBILINOGEN,URINE NORMAL MG/DL (0.0-1.0)
[2017-07-16 12:44] LABS: APPEARANCE,URINE SLIGHTLY CLOUDY
[2017-07-16 12:55] LABS: ANION GAP 7 mmol/L (5-15); BLOOD UREA NITROGEN 20 mg/dL (7-18); CALCIUM 9.7 MG/DL (8.5-10.1); CARBON DIOXIDE 29 MMOL/L (21-32); CHLORIDE 105 MMOL/L (98-107); POTASSIUM 3.8 MMOL/L (3.5-5.1); SODIUM 141 MMOL/L (136-145)
[2017-07-16 13:00] LABS: ALANINE AMINOTRANSFERASE 17 U/L (12-78); ALBUMIN 3.7 G/DL (3.4-5.0); ALBUMIN/GLOBULIN RATIO 0.9 (1.0-2.7); ALKALINE PHOSPHATASE 75 U/L (46-116); ASPARTATE AMINO TRANSFERASE 19 U/L (15-37); BILIRUBIN,TOTAL 0.4 MG/DL (0.2-1.0); CREATINE KINASE 76 U/L (26-308)
[2017-07-16 13:24] VITALS: BP 158/74
--- NOTE | 2017-07-16 14:11 | Diagnostic Imaging Report ---
Indication: Abdominal pain Technique: Supine view of the abdomen Comparison: none Findings: Gas pattern is unremarkable. There are degenerative changes of the lumbar spine. No unusual masses or calcifications Impression: No acute process
--- NOTE | 2017-07-16 14:12 | Diagnostic Imaging Report ---
Indication: Cough Technique: One view of the chest Comparison: Findings: Lungs and pleural spaces are clear. Heart size is normal. Aorta is slightly tortuous Impression: No acute process
--- NOTE | 2017-07-16 14:16 | Emergency Room Report ---
History of Present Illness General Chief Complaint: Diarrhea Source: Patient Present Illness HPI Patient with 2-3 days of diarrhea and abdominal pain. Recent hospitalizations and antibiotic use. Has had similar symptoms in past with diagnosis of colitis. No blood in stool. She feels weak, thirsty and dehydrated. Pain not severe but rated 7/10, crampy, more L side. No fevers chills. No cough. Post paul. H/O diverticulitis/osis. CT 2017 mostly unremarkable. On antibiotics for UTI. No dysuria at this time. No chest pain, cough, BETANCUR, headache. She is anxious with the abdominal pain. Last admission July 2016 (not recent admission - was at [facility] last month): (1) Abdominal pain (2) UTI (urinary tract infection) (3) Type 2 diabetes mellitus, uncontrolled (4) HTN (hypertension) Allergies: Coded Allergies: AMITRIPTYLINE (Verified Allergy, Unknown, ANXIETY, 07/11/16) Patient History Past Medical History: see triage record Past Surgical History: paul Social History: Denies: smoking, alcohol use Social History Narrative at home Reviewed Nursing Documentation: PMH: Agreed; PSxH: Agreed Nursing Documentation-PMH Past Medical History: No History, Except For Hx Cardiac Problems: Yes Hx Hypertension: Yes Hx Diabetes: Yes Hx Cancer: No Hx Gastrointestinal Problems: Yes - DIVERTICULITIS Hx Neurological Problems: Yes Hx Headaches: Yes Physical Exam Vital Signs Date Time Temp Pulse Resp B/P (MAP) Pulse Ox O2 Delivery O2 Flow Rate FiO2 07/16/17 11:15 98.0 79 20 125/73 100 Room Air 98.1 Medical Decision Making Diagnostic Impression: Primary Impression: Abdominal pain Qualified Codes: R10.84 - Generalized abdominal pain Additional Impressions: Colitis Dehydration Anxiety ER Course Patient presents with abdominal pain and diarrhea. DDX: C difficile, GItis, diverticulitis, UTI, IBS, anxiety amongst others. Patient appears dehydrated and will be receiving IV hydration. Evaluation with EKG, Abd and CXR, labs. Patient will be treated with zofran and a small dose of morphine. Samples ordered for C. dif and stool WBC. EKG with septal changes, not STEMI. CXR senescent changes. ABD with NSBGP with some increased stool. Labs with normal WBC, elevated BUN and min elevated glucose. Lipase normal and urine clear. Improved with IV hydration, but still with pain. Morphine repeated. Admit med, Dr. Kaufman with Dr. Audelia altman. Laboratory Tests Test 07/16/17 11:10 07/16/17 12:24 Urine Color Pale yellow Urine Appearance Slightly cloudy Urine pH 7 (4.5-8.0) Urine Specific [place] 1.010 (1.005-1.035) Urine Protein 3+ (NEGATIVE) H Urine Glucose (UA) Negative (NEGATIVE) Urine Ketones Negative (NEGATIVE) Urine Occult Blood 2+ (NEGATIVE) H Urine Nitrite Negative (NEGATIVE) Urine Bilirubin Negative (NEGATIVE) Urine Urobilinogen Normal MG/DL (0.0-1.0) Urine Leukocyte Esterase 1+ (NEGATIVE) H Urine RBC 2-4 /HPF (0 - 2) H Urine WBC 2-4 /HPF (0 - 2) Urine Squamous Epithelial Cells Few /LPF (NONE/OCC) Urine Bacteria Occasional /HPF (NONE) White Blood Count 5.4 K/UL (4.8-10.8) Red Blood Count 4.20 M/UL (4.20-5.40) Hemoglobin 13.2 G/DL (12.0-16.0) Hematocrit 38.9 % (37.0-47.0) Mean Corpuscular Volume 93 FL (80-99) Mean Corpuscular Hemoglobin 31.5 PG (27.0-31.0) H Mean Corpuscular Hemoglobin Concent 34.1 G/DL (32.0-36.0) Red Cell Distribution Width 13.1 % (11.6-14.8) Platelet Count 212 K/UL (150-450) Mean Platelet Volume 7.6 FL (6.5-10.1) Neutrophils (%) (Auto) 64.1 % (45.0-75.0) Lymphocytes (%) (Auto) 27.1 % (20.0-45.0) Monocytes (%) (Auto) 6.9 % (1.0-10.0) Eosinophils (%) (Auto) 0.5 % (0.0-3.0) Basophils (%) (Auto) 1.5 % (0.0-2.0) Prothrombin Time 10.1 SEC (9.30-11.50) Prothrombin Time INR 1.0 (0.9-1.1) PTT 31 SEC (23-33) Sodium Level 141 MMOL/L (136-145) Potassium Level 3.8 MMOL/L (3.5-5.1) Chloride Level 105 MMOL/L (98-107) Carbon Dioxide Level 29 MMOL/L (21-32) Anion Gap 7 mmol/L (5-15) Blood Urea Nitrogen 20 mg/dL (7-18) H Creatinine 1.0 MG/DL (0.55-1.30) Estimate Glomerular Filtration Rate mL/min (>60) Glucose Level 124 MG/DL (74-106) H Calcium Level 9.7 MG/DL (8.5-10.1) Total Bilirubin 0.4 MG/DL (0.2-1.0) Aspartate Amino Transferase (AST) 19 U/L (15-37) Alanine Aminotransferase (ALT) 17 U/L (12-78) Alkaline Phosphatase 75 U/L (46-116) Total Creatine Kinase 76 U/L (26-308) Troponin I 0.008 ng/mL (0.000-0.056) Total Protein 8.0 G/DL (6.4-8.2) Albumin 3.7 G/DL (3.4-5.0) Globulin 4.3 g/dL Albumin/Globulin Ratio 0.9 (1.0-2.7) L Lipase 102 U/L (73-393) EKG Diagnostic Results Rate: normal Rhythm: NSR ST Segments: no acute changes - septal changes Rhythm Strip Diag. Results EP Interpretation: yes Rhythm: NSR, no PVC's, no ectopy Chest X-Ray Diagnostic Results Chest X-Ray Diagnostic Results : Chest X-Ray Ordered: Yes # of Views/Limited/Complete: 1 View Indication: Other EP Interpretation: Yes Interpretation: no consolidation, no effusion, no pneumothorax, other - calcifications Impression: No acute disease Electronically Signed by: Tim Ash MD Other X-Ray Diagnostic Results Other X-Ray Diagnostic Results : X-Ray ordered: abd # of Views/Limited Vs Complete: 1 View Indication: Pain EP Interpretation: Yes Interpretation: nonspecific bowel gas, no sbo, other - no masses Impression: Other Electronically Signed by: Tim Ash MD Last Vital Signs Date Time Temp Pulse Resp B/P (MAP) Pulse Ox O2 Delivery O2 Flow Rate FiO2 07/16/17 20:00 97.9 64 14 150/81 97 97.9 07/16/17 18:24 Room Air Status: improved Disposition: ADMITTED INPATIENT Condition: Serious Referrals: NOT APPLICABLE THIS PATIENT,RE (PCP) Tim Ash M.D. Jul 16, 2017 14:16
[2017-07-16 15:30] VITALS: BP 130/77
[2017-07-16] MEDS ORDERED: Morphine Sulfate 4mg/ml Inj IVP PRN ×2 (16:00→18:45)
[2017-07-16 17:57] VITALS: BP_SYST 158; BP_SYST 170; BP_DIAS 66; BP_DIAS 69
--- NOTE | 2017-07-16 18:37 | History and Physical ---
History of Present Illness General Date patient seen: Jul 16, 2017 Time patient seen: 18:37 Reason for Hospitalization: intractable abd pain, diarrhea Present Illness HPI 76y/o female with pmh of DM2, HTN, ischemic colitis, diverticulosis who presents with abd pain and diarrhea. Pt states she was doing well until 4 days ago when she was diagnosed with UTI and placed on an antibiotic (possibly augmentin?). She developed profuse non-bloody diarrhea yesterday, abt 10-15 BMs over the past 24h. C/o lower abd generalized pain and some nausea but no emesis. Tolerating PO. Pain feel similar to prior episodes of colitis. Pt denies f/c, chest pain, SOB. Of note, pt recently admitted to [facility] for abd pain and diarrhea. [facility] medical records reviewed. She underwent EGD and colonoscopy s /p biopsies with unremarkable path. Wireless capsule endoscopy also unremarkable. MR enterography showed severe diverticulosis involving the descending and sigmoid colon with hypertrophy of the wall but no definite evidence for acute diverticulitis. Stool calprotectin was neg. Allergies: Coded Allergies: AMITRIPTYLINE (Verified Allergy, Unknown, ANXIETY, 07/11/16) Medication History Scheduled Amlodipine Besylate* (Amlodipine Besylate*), 5 MG ORAL DAILY, (Reported) Aspirin (Aspirin EC), 81 MG PO DAILY, (Reported) Cefuroxime Axetil* (Cefuroxime*), 500 MG PO Q12HR Celecoxib* (Celebrex*), 200 MG ORAL DAILY, (Reported) Cyclosporine (Restasis), 1 DROP BOTH EYES EVERY 12 HOURS, (Reported) Linaclotide (Linzess), 145 MCG PO EVERY OTHER DAY, (Reported) Metformin Hcl* (Glucophage*), 500 MG PO BID, (Reported) Franklin-3 Fatty Acids (Franklin-3), 1,000 MG PO DAILY, (Reported) Polyethylene Glycol 3350* (Polyethylene Glycol 3350*), 17 GM ORAL EVERY OTHER DAY, (Reported) Simvastatin (Zocor), 20 MG PO QHS, (Reported) Valsartan (Diovan), 160 MG ORAL DAILY, (Reported) Scheduled PRN Diazepam* (Diazepam*), 10 MG ORAL for For Anxiety, (Reported) Hydrocodone Bit/Acetaminophen 10-325* ([place] 10-325*), 1 TAB ORAL for For Pain, (Reported) Morphine Sulfate* (Ms Contin*), 60 MG ORAL for For Pain, (Reported) Ondansetron Odt* (Zofran Odt*), 8 MG ORAL for Nausea & Vomiting, (Reported) Propylene Glycol/Peg 400/Pf (Systane 0.3-0.4% Eye Drops), 1 EACH OP FOUR TIMES A DAY PRN for Dry Eyes, (Reported) Zolpidem Tartrate* (Ambien*), 10 MG ORAL BEDTIME PRN for Insomnia, (Reported) Discontinued Medications Sulfasalazine* (Azulfidine*), 1,500 MG ORAL BID, (Reported) Discontinued Reason: Pt stopped taking med Tizanidine Hcl* (Zanaflex*), 4 MG ORAL THREE TIMES A DAY, (Reported) Discontinued Reason: Pt stopped taking med Patient History History Provided By: Patient, Medical Record, PMD Healthcare decision maker N Resuscitation status Advanced Directive on File Past Medical/Surgical History Past Medical/Surgical History: (1) Type 2 diabetes mellitus, uncontrolled (2) HTN (hypertension) (3) Chronic abdominal pain (4) Ischemic colitis (5) Anxiety (6) Diverticulitis (7) UTI (urinary tract infection) (8) Severe diverticulosis involving the descending and sigmoid (9) Diffuse erosive gastritis (10) Erosive GERD (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 Social History Social History: (1) Lives with family Review of Systems Constitutional: Reports: malaise, weakness Eye: Reports: no symptoms ENT: Reports: no symptoms Respiratory: Reports: no symptoms Cardiovascular: Reports: no symptoms Gastrointestinal: Reports: abdominal pain, diarrhea Genitourinary: Reports: dysuria Musculoskeletal: Reports: no symptoms Skin: Reports: no symptoms Psychiatric: Reports: no symptoms Neurological: Reports: no symptoms Endocrine: Reports: no symptoms Hematologic/Lymphatic: Reports: no symptoms Physical Exam Physical Exam Narrative General: alert, cooperative, no distress, appears stated age Head: normocephalic, without obvious abnormality, atraumatic Eyes: conjunctivae/corneas clear. PERRL, EOM's intact Throat: lips, mucosa, and tongue normal. MMM Neck: supple, symmetrical, trachea midline, and no JVD Lungs: clear to auscultation bilaterally Heart: regular rate and rhythm, S1, S2 normal, no murmur, click, rub or gallop Abdomen: soft, +TTP of lower abd w/o rebound/guarding, non-distended, bowel sounds normal Extremities: extremities normal, atraumatic, no cyanosis or edema Pulses: 2+ and symmetric Skin: skin color, texture, turgor normal; no rashes or lesions Neurologic: grossly normal, no focal deficits Last 24 Hour Vital Signs Date Time Temp Pulse Resp B/P (MAP) Pulse Ox O2 Delivery O2 Flow Rate FiO2 07/16/17 18:24 98.2 88 12 158/112 96 Room Air 07/16/17 17:57 61 14 158/66 95 Room Air 07/16/17 15:30 65 18 130/77 99 Room Air 07/16/17 13:27 98.0 07/16/17 13:24 68 20 158/74 100 Room Air 07/16/17 12:33 98.0 07/16/17 11:15 98.0 79 20 125/73 100 Room Air 98.1 Laboratory Tests Test 07/16/17 11:10 07/16/17 12:24 Urine Color Pale yellow Urine Appearance Slightly cloudy Urine pH 7 (4.5-8.0) Urine Specific [place] 1.010 (1.005-1.035) Urine Protein 3+ (NEGATIVE) H Urine Glucose (UA) Negative (NEGATIVE) Urine Ketones Negative (NEGATIVE) Urine Occult Blood 2+ (NEGATIVE) H Urine Nitrite Negative (NEGATIVE) Urine Bilirubin Negative (NEGATIVE) Urine Urobilinogen Normal MG/DL (0.0-1.0) Urine Leukocyte Esterase 1+ (NEGATIVE) H Urine RBC 2-4 /HPF (0 - 2) H Urine WBC 2-4 /HPF (0 - 2) Urine Squamous Epithelial Cells Few /LPF (NONE/OCC) Urine Bacteria Occasional /HPF (NONE) White Blood Count 5.4 K/UL (4.8-10.8) Red Blood Count 4.20 M/UL (4.20-5.40) Hemoglobin 13.2 G/DL (12.0-16.0) Hematocrit 38.9 % (37.0-47.0) Mean Corpuscular Volume 93 FL (80-99) Mean Corpuscular Hemoglobin 31.5 PG (27.0-31.0) H Mean Corpuscular Hemoglobin Concent 34.1 G/DL (32.0-36.0) Red Cell Distribution Width 13.1 % (11.6-14.8) Platelet Count 212 K/UL (150-450) Mean Platelet Volume 7.6 FL (6.5-10.1) Neutrophils (%) (Auto) 64.1 % (45.0-75.0) Lymphocytes (%) (Auto) 27.1 % (20.0-45.0) Monocytes (%) (Auto) 6.9 % (1.0-10.0) Eosinophils (%) (Auto) 0.5 % (0.0-3.0) Basophils (%) (Auto) 1.5 % (0.0-2.0) Prothrombin Time 10.1 SEC (9.30-11.50) Prothromb Time International Ratio 1.0 (0.9-1.1) Activated Partial Thromboplast Time 31 SEC (23-33) Sodium Level 141 MMOL/L (136-145) Potassium Level 3.8 MMOL/L (3.5-5.1) Chloride Level 105 MMOL/L (98-107) Carbon Dioxide Level 29 MMOL/L (21-32) Anion Gap 7 mmol/L (5-15) Blood Urea Nitrogen 20 mg/dL (7-18) H Creatinine 1.0 MG/DL (0.55-1.30) Estimat Glomerular Filtration Rate mL/min (>60) Glucose Level 124 MG/DL (74-106) H Calcium Level 9.7 MG/DL (8.5-10.1) Total Bilirubin 0.4 MG/DL (0.2-1.0) Aspartate Amino Transf (AST/SGOT) 19 U/L (15-37) Alanine Aminotransferase (ALT/SGPT) 17 U/L (12-78) Alkaline Phosphatase 75 U/L (46-116) Total Creatine Kinase 76 U/L (26-308) Troponin I 0.008 ng/mL (0.000-0.056) Total Protein 8.0 G/DL (6.4-8.2) Albumin 3.7 G/DL (3.4-5.0) Globulin 4.3 g/dL Albumin/Globulin Ratio 0.9 (1.0-2.7) L Lipase 102 U/L (73-393) Height (Feet): 5 Height (Inches): 3.00 Weight (Pounds): 180 Medications Current Medications Medications (Trade) Dose Ordered Sig/Janna Route PRN Reason Start Time Stop Time Status Last Admin Dose Admin Morphine Sulfate (Morphine Sulfate) 4 mg Q4H PRN IVP For Pain 07/16/17 16:00 07/23/17 15:59 07/16/17 16:13 Sodium Chloride 1,000 ml @ 300 mls/hr Q3H20M IV 07/16/17 11:45 08/15/17 11:44 07/16/17 11:45 Assessment/Plan Problem List: (1) Diarrhea ICD Codes: R19.7 - Diarrhea, unspecified SNOMED: 84848897 (2) Abdominal pain ICD Codes: R10.9 - Abdominal pain SNOMED: 47072079 Qualifiers: Qualified Codes: R10.84 - Generalized abdominal pain (3) Type 2 diabetes mellitus, uncontrolled ICD Codes: E11.65 - Type 2 diabetes mellitus with hyperglycemia SNOMED: 029314386 (4) HTN (hypertension) ICD Codes: I10 - Essential (primary) hypertension SNOMED: 38401339 (5) Diverticulitis ICD Codes: K57.92 - Diverticulitis of intestine SNOMED: 493086405 (6) UTI (urinary tract infection) ICD Codes: N39.0 - Urinary tract infection, site not specified SNOMED: 60916020 Status: stable Assessment/Plan Pt with extensive recent workup at [facility] including EGD, colonoscopy, wireless capsule endoscopy and MR enterography which showed no e/o IBD, but showed severe diverticulosis. Given acuity of this episode, possibly gastroenteritis vs medication-induced ( recent antibiotic use) vs C. diff Admit med-surg GI consulted Per GI, OK for diet. Diabetic diet ordered as tolerated mIVFs Hold off on antibiotics for intra-abdominal source F/u C. diff Empiric cefepime for possible UTI (was on PO abx at home, unclear which one; pt w/ recent urine cx at [facility] showed E. Coli w/ resistance to cefazolin and ceftriaxone but sensitive to cefepime) F/u urine culture--if neg can possible d/c off abx Pain control Supportive care DC pending pain control, GI workup DVT Prophylaxis: SCD, HSQ Code Status: Full Hospital Classification Declaration: Based on this initial evaluation, and depending on the patient's clinical course, I anticipate that this patient will require hospitalization for 2-3 days for abd pain, diarrhea, and close respiratory/hemodynamic monitoring. Disposition: Once the patient is stable to leave the hospital, I anticipate the patient will likely be discharged to the following environment: home with vs SNF I spent 72 minutes on this patient's case, and >50% was dedicated to counseling and/or care coordination. Discussed with patient/family, nursing staff, SW/CM, GI regarding clinical status, treatment course, and disposition planning. D/w GI re diet, need for antibiotics, workup Time of note may not reflect time of encounter. Audelia King M.D. Jul 16, 2017 18:37
[2017-07-16] MEDS ORDERED: Acetaminophen 650 MG SUPP RECTAL PRN ×2 (18:45)
[2017-07-16 20:00] VITALS: BP 150/81
[2017-07-16] MEDS ORDERED: NS w/KCl 20mEq 1,000 ML IV SCH (20:00)
[2017-07-16] MEDS ORDERED: HydrALAZINE 10mg Tab ORAL PRN (20:00)
[2017-07-16] MEDS: NovoLOG Insulin Flexpen SUBQ SCH (21:00)
[2017-07-16] MEDS: Heparin 5000 units/ml inj SUBQ SCH (21:22)
[2017-07-16] MEDS: Morphine Sulfate 4mg/ml Inj IVP PRN (21:47)
[2017-07-17] VITALS: BP 145/79
[2017-07-17] MEDS: Zolpidem 5mg tab ORAL PRN (00:10)
[2017-07-17 04:00] VITALS: BP 152/86
[2017-07-17] MEDS: Morphine Sulfate 4mg/ml Inj IVP PRN ×3 (04:26→20:37)
--- NOTE | 2017-07-17 05:00 | Consultation ---
DATE OF CONSULTATION: 07/16/2017 GASTROENTEROLOGY CONSULTATION CHIEF COMPLAINT: I was asked to see this patient by Dr. Oral Fowler for evaluation of diarrhea. HISTORY OF PRESENT ILLNESS: The patient is a pleasant 76-year-old woman, who is being admitted to the hospital due to diarrhea. The patient states that she was well until about 4 days ago when she was diagnosed with urinary tract infection. She was placed on a prescription of Cipro for the past four days and since yesterday she has had profuse non-bloody diarrhea. She has had 10 to 15 bowel movements over the past 24 hours. She does have some generalized abdominal pain but no vomiting or hematemesis or hematochezia. The patient feels better now, but she is being admitted to the hospital for further observation. She has not had any other recent antibiotics. She was admitted to [facility] about a month ago for abdominal pain where she underwent more extensive workup. On that admission, she had complained of occasional abdominal pain over the past 4 to 5 years. Because of the chronicity of her symptoms and inflammatory bowel disease marker panel which is positive, she underwent an endoscopy as well as colonoscopy with terminal ileum intubation. The terminal ileum was normal and so were all the biopsies. There was no evidence of inflammatory bowel disease on endoscopic evaluation. In addition, the patient underwent MR enterography. The results are still pending at this time and I placed a call to Radiology Department at [facility] to finalize the reading. However, the preliminary reading only showed some colonic level thickening, which as explained above has already been evaluated by colonoscopy and biopsy. The patient states that other than the last 24 hours, she has not had diarrhea over the past month. She does, however, have a cousin with Crohn's disease. PAST MEDICAL HISTORY: History of osteoporosis, history of segmental colitis, possibly ischemic, history of hypertension, oxo-qsryrji-ruigbisai diabetes mellitus, diverticulosis, previous history of diverticulitis, history of anxiety, and melanosis coli. PAST SURGICAL HISTORY: Status post arthroscopic knee surgery bilaterally and status post laparoscopic cholecystectomy. MEDICATIONS: See the chart list for details. ALLERGIES: None. FAMILY HISTORY: Positive for Crohn's disease in a cousin. SOCIAL HISTORY: The patient does not smoke or drink alcohol. REVIEW OF SYSTEMS: Otherwise negative. PHYSICAL EXAMINATION: GENERAL: A pleasant woman, seen in the emergency room. HEENT: Normocephalic and atraumatic. Sclerae anicteric. Oropharynx clear. NECK: Supple. CHEST: Clear to auscultation. CARDIOVASCULAR: Revealed a regular rate. ABDOMEN: Soft with good bowel sounds. There is no organomegaly or tenderness. EXTREMITIES: Revealed no edema. LABORATORY DATA: Noted. ASSESSMENT: This patient presents with a one-day history of diarrhea, which is somewhat acute and perhaps resolving. This episode may simply be a bout of viral gastroenteritis and may respond to conservative management. The patient recently underwent an extensive workup at [facility] with an endoscopy and colonoscopy as well as MR enterography, which did not show any evidence of inflammatory bowel disease. In addition, the patient had a calprotectin performed on her stool, which was negative at a level of 34. Given the recent antibiotics, it is reasonable to check a Clostridium difficile in the stools, which showed as negative. Other that that, I would hold off on antibiotic treatment and manage the patient conservatively. Further recommendations will be made if the patient's symptoms continue. RECOMMENDATIONS: 1. Oral diet. 2. IV hydration. 3. Check stool for Clostridium difficile. 4. Further recommendations to follow. Thank you for asking me to participate in the care of this patient. Anne Hughes M.D. DR: VAZQUEZ JOB#: [id number] CC:
[2017-07-17] MEDS: NovoLOG Insulin Flexpen SUBQ SCH ×4 (06:30→20:41)
[2017-07-17 06:40] LABS: BASOPHILS % (AUTO) 1.3 % (0.0-2.0); EOSINOPHILS % (AUTO) 2.3 % (0.0-3.0); HEMATOCRIT 38.5 % (37.0-47.0); LYMPHOCYTES % (AUTO) 43.1 % (20.0-45.0); MEAN CORPUSCULAR VOLUME 92 FL (80-99); MONOCYTES % (AUTO) 10.5 % (1.0-10.0); PLATELET COUNT 189 K/UL (150-450); RED BLOOD COUNT 4.17 M/UL (4.20-5.40); RED CELL DISTRIBUTION WIDTH 13.1 % (11.6-14.8); WHITE BLOOD COUNT 5.7 K/UL (4.8-10.8)
[2017-07-17 07:10] LABS: ALANINE AMINOTRANSFERASE 17 U/L (12-78); ALBUMIN 3.6 G/DL (3.4-5.0); ALKALINE PHOSPHATASE 72 U/L (46-116); ANION GAP 9 mmol/L (5-15); ASPARTATE AMINO TRANSFERASE 17 U/L (15-37); BILIRUBIN,DIRECT 0.1 MG/DL (0.0-0.3); BILIRUBIN,TOTAL 0.3 MG/DL (0.2-1.0); BLOOD UREA NITROGEN 18 mg/dL (7-18); CALCIUM 9.4 MG/DL (8.5-10.1); CARBON DIOXIDE 28 MMOL/L (21-32); CHLORIDE 107 MMOL/L (98-107); CREATININE 0.9 MG/DL (0.55-1.30); POTASSIUM 3.8 MMOL/L (3.5-5.1); SODIUM 143 MMOL/L (136-145)
[2017-07-17 08:00] VITALS: BP 144/79
[2017-07-17] MEDS ORDERED: SulfASALAZine 500MG tab ORAL SCH (09:00)
[2017-07-17] MEDS: Aspirin EC 81mg tab ORAL SCH (09:12)
[2017-07-17] MEDS: Heparin 5000 units/ml inj SUBQ SCH ×2 (09:20→20:39)
[2017-07-17 12:00] VITALS: BP 150/87
[2017-07-17 16:00] VITALS: BP 137/73
[2017-07-17] MEDS ORDERED: cefTRIAXone 1 GM in D5W 55 ML IVPB SCH (16:00)
[2017-07-17] MEDS: Cefepime HCl 1 GM in D5W 55 ML IVPB SCH (16:16)
[2017-07-17] MEDS: Potassium Chloride 10 MEQ in NS 1000ml 1,000 ML IV SCH (17:33)
[2017-07-17 20:01] VITALS: BP_SYST 152; BP_SYST 161; BP_DIAS 53; BP_DIAS 95
--- NOTE | 2017-07-17 21:58 | General Progress Note ---
Assessment/Plan Assessment/Plan Assessment - resolved diarrhea - recent UTI Recommendations - IVF - push po - follow symptoms - Check C Diff Subjective Allergies: Coded Allergies: AMITRIPTYLINE (Verified Allergy, Unknown, ANXIETY, 07/11/16) Subjective Feels OK no N/V tolerating PO no diarrhea today Objective Last 24 Hour Vital Signs Date Time Temp Pulse Resp B/P (MAP) Pulse Ox O2 Delivery O2 Flow Rate FiO2 07/17/17 20:01 97.0 69 19 152/95 100 97.0 07/17/17 16:00 97.9 53 18 137/73 95 97.9 07/17/17 12:00 98.2 75 18 150/87 95 98.2 07/17/17 09:45 97.9 07/17/17 09:15 97.9 07/17/17 09:12 63 152/86 07/17/17 08:00 97.8 62 15 144/79 94 97.8 07/17/17 04:00 97.9 63 15 152/86 94 97.9 07/17/17 00:00 97.7 59 15 145/79 95 97.7 Intake and Output 07/16/17 07/17/17 19:00 07:00 Intake Total 0 ml 240 ml Balance 0 ml 240 ml Intake Oral 0 ml 240 ml # Voids 2 # Bowel Movements 1 Laboratory Tests 07/17/17 05:35: White Blood Count 5.7, Red Blood Count 4.17L, Hemoglobin 13.0, Hematocrit 38.5, Mean Corpuscular Volume 92, Mean Corpuscular Hemoglobin 31.1H, Mean Corpuscular Hemoglobin Concent 33.8, Red Cell Distribution Width 13.1, Platelet Count 189, Mean Platelet Volume 7.5, Neutrophils (%) (Auto) 43.0L, Lymphocytes (%) (Auto) 43.1, Monocytes (%) (Auto) 10.5H, Eosinophils (%) (Auto) 2.3, Basophils (%) ( Auto) 1.3, Sodium Level 143, Potassium Level 3.8, Chloride Level 107, Carbon Dioxide Level 28, Anion Gap 9, Blood Urea Nitrogen 18, Creatinine 0.9, Estimat Glomerular Filtration Rate , Glucose Level 109H, Calcium Level 9.4, Magnesium Level 1.7L, Total Bilirubin 0.3, Direct Bilirubin 0.1, Aspartate Amino Transf ( AST/SGOT) 17, Alanine Aminotransferase (ALT/SGPT) 17, Alkaline Phosphatase 72, Total Protein 7.3, Albumin 3.6 Height (Feet): 5 Height (Inches): 3.00 Weight (Pounds): 180 Objective WDWN NCAT supple CTA RRR Abd soft ND NT no edema non focal PATY VENTURA Jul 17, 2017 21:58
--- NOTE | 2017-07-17 22:38 | General Progress Note ---
Assessment/Plan Problem List: (1) Diarrhea ICD Codes: R19.7 - Diarrhea, unspecified SNOMED: 72233213 (2) Abdominal pain ICD Codes: R10.9 - Abdominal pain SNOMED: 45279501 Qualifiers: Qualified Codes: R10.84 - Generalized abdominal pain (3) Type 2 diabetes mellitus, uncontrolled ICD Codes: E11.65 - Type 2 diabetes mellitus with hyperglycemia SNOMED: 360553475 (4) HTN (hypertension) ICD Codes: I10 - Essential (primary) hypertension SNOMED: 64600685 (5) Diverticulitis ICD Codes: K57.92 - Diverticulitis of intestine SNOMED: 663318131 (6) UTI (urinary tract infection) ICD Codes: N39.0 - Urinary tract infection, site not specified SNOMED: 05707078 Status: stable Assessment/Plan Pt with extensive recent workup at [facility] including EGD, colonoscopy, wireless capsule endoscopy and MR enterography which showed no e/o IBD, but showed severe diverticulosis. Given acuity of this episode, possibly gastroenteritis vs medication-induced ( recent antibiotic use) vs C. diff GI consulted Per GI, OK for diet. Diabetic diet ordered as tolerated mIVFs Hold off on antibiotics for intra-abdominal source F/u C. diff (not yet collected) Empiric cefepime for possible UTI (was on PO abx at home, possibly augmentin; pt w/ recent urine cx at [facility] showed E. Coli w/ resistance to cefazolin and ceftriaxone but sensitive to cefepime) F/u urine culture--if neg can possible d/c off abx Pain control Supportive care DC likely tomorrow pending pain control DVT Prophylaxis: SCD, HSQ Code Status: Full Hospital Classification Declaration: Based on this initial evaluation, and depending on the patient's clinical course, I anticipate that this patient will require hospitalization for 1-2 days for abd pain, diarrhea, and close respiratory/hemodynamic monitoring. Disposition: Once the patient is stable to leave the hospital, I anticipate the patient will likely be discharged to the following environment: home with HH I spent 42 minutes on this patient's case, and >50% was dedicated to counseling and/or care coordination. Discussed with patient/family, nursing staff, SW/CM, GI regarding clinical status, treatment course, and disposition planning. D/w GI re diet, need for antibiotics, workup, Time of note may not reflect time of encounter. Subjective Date patient seen: Jul 17, 2017 Time patient seen: 13:00 ROS Limited/Unobtainable: No Constitutional: Reports: weakness HEENT: Reports: no symptoms Cardiovascular: Reports: no symptoms Gastrointestinal/Abdominal: Reports: abdominal pain, diarrhea Genitourinary: Reports: no symptoms Neurologic/Psychiatric: Reports: no symptoms Endocrine: Reports: no symptoms Hematologic/Lymphatic: Reports: no symptoms Allergies: Coded Allergies: AMITRIPTYLINE (Verified Allergy, Unknown, ANXIETY, 07/11/16) Subjective No acute o/n events Cont to c/o lower abd pain. Doesn't feel ready to go home yet. Had small amt of diarrhea today which wasn't enough to send for stool studies so C. diff not yet collected Tolerating PO Denies f/c, n/v, chest pain, SOB Objective Last 24 Hour Vital Signs Date Time Temp Pulse Resp B/P (MAP) Pulse Ox O2 Delivery O2 Flow Rate FiO2 07/17/17 20:01 97.0 69 19 152/95 100 97.0 07/17/17 16:00 97.9 53 18 137/73 95 97.9 07/17/17 12:00 98.2 75 18 150/87 95 98.2 07/17/17 09:45 97.9 07/17/17 09:15 97.9 07/17/17 09:12 63 152/86 07/17/17 08:00 97.8 62 15 144/79 94 97.8 07/17/17 04:00 97.9 63 15 152/86 94 97.9 07/17/17 00:00 97.7 59 15 145/79 95 97.7 Intake and Output 07/16/17 07/17/17 19:00 07:00 Intake Total 0 ml 240 ml Balance 0 ml 240 ml Intake Oral 0 ml 240 ml # Voids 2 # Bowel Movements 1 Laboratory Tests 07/17/17 05:35: White Blood Count 5.7, Red Blood Count 4.17L, Hemoglobin 13.0, Hematocrit 38.5, Mean Corpuscular Volume 92, Mean Corpuscular Hemoglobin 31.1H, Mean Corpuscular Hemoglobin Concent 33.8, Red Cell Distribution Width 13.1, Platelet Count 189, Mean Platelet Volume 7.5, Neutrophils (%) (Auto) 43.0L, Lymphocytes (%) (Auto) 43.1, Monocytes (%) (Auto) 10.5H, Eosinophils (%) (Auto) 2.3, Basophils (%) ( Auto) 1.3, Sodium Level 143, Potassium Level 3.8, Chloride Level 107, Carbon Dioxide Level 28, Anion Gap 9, Blood Urea Nitrogen 18, Creatinine 0.9, Estimat Glomerular Filtration Rate , Glucose Level 109H, Calcium Level 9.4, Magnesium Level 1.7L, Total Bilirubin 0.3, Direct Bilirubin 0.1, Aspartate Amino Transf ( AST/SGOT) 17, Alanine Aminotransferase (ALT/SGPT) 17, Alkaline Phosphatase 72, Total Protein 7.3, Albumin 3.6 Height (Feet): 5 Height (Inches): 3.00 Weight (Pounds): 180 Objective General: alert, cooperative, no distress, appears stated age Head: normocephalic, without obvious abnormality, atraumatic Eyes: conjunctivae/corneas clear. PERRL, EOM's intact Throat: lips, mucosa, and tongue normal. MMM Neck: supple, symmetrical, trachea midline, and no JVD Lungs: clear to auscultation bilaterally Heart: regular rate and rhythm, S1, S2 normal, no murmur, click, rub or gallop Abdomen: soft, +TTP of lower abd w/o rebound or guarding, non-distended, bowel sounds normal; no masses or organomegaly Extremities: extremities normal, atraumatic, no cyanosis or edema Pulses: 2+ and symmetric Skin: skin color, texture, turgor normal; no rashes or lesions Neurologic: grossly normal, no focal deficits Audelia King M.D. Jul 17, 2017 22:20
[2017-07-18] VITALS: BP 155/70
[2017-07-18] MEDS: Zolpidem 5mg tab ORAL PRN (01:05)
[2017-07-18 04:00] VITALS: BP 142/85
[2017-07-18] MEDS: Potassium Chloride 10 MEQ in NS 1000ml 1,000 ML IV SCH (04:03)
[2017-07-18] MEDS: Cefepime HCl 1 GM in D5W 55 ML IVPB SCH (04:03)
[2017-07-18] MEDS: Morphine Sulfate 4mg/ml Inj IVP PRN (04:19)
[2017-07-18] MEDS: NovoLOG Insulin Flexpen SUBQ SCH ×2 (06:30→11:30)
[2017-07-18 08:00] VITALS: BP 142/77
[2017-07-18] MEDS: Aspirin EC 81mg tab ORAL SCH (09:20)
[2017-07-18] MEDS: Heparin 5000 units/ml inj SUBQ SCH (09:21)
[2017-07-18 12:00] VITALS: BP 138/86
--- NOTE | 2017-07-18 13:40 | Discharge Summary ---
Discharge Summary Hospital Course Date of Admission Jul 16, 2017 at 13:07 Date of Discharge Admitting Diagnosis colititis HPI Sabina Blood is a 76 year old female who was admitted on Jul 16, 2017 at 13: 07 for Colitis 76y/o female with pmh of DM2, HTN, ischemic colitis, diverticulosis who presents with abd pain and diarrhea. Pt states she was doing well until 4 days ago when she was diagnosed with UTI and placed on an antibiotic (possibly augmentin?). She developed profuse non-bloody diarrhea yesterday, abt 10-15 BMs over the past 24h. C/o lower abd generalized pain and some nausea but no emesis. Tolerating PO. Pain feel similar to prior episodes of colitis. Pt denies f/c, chest pain, SOB. Of note, pt recently admitted to [facility] for abd pain and diarrhea. [facility] medical records reviewed. She underwent EGD and colonoscopy s /p biopsies with unremarkable path. Wireless capsule endoscopy also unremarkable. MR enterography showed severe diverticulosis involving the descending and sigmoid colon with hypertrophy of the wall but no definite evidence for acute diverticulitis. Stool calprotectin was neg Consultations GIDATE OF ADMISSION: DATE OF DISCHARGE: REASON FOR HOSPITALIZATION: SURGERY PERFORMED: CONDITION IN THE HOSPITAL:The patient tolerated the surgery without complications. DISCHARGE CONDITION: The patient was stable at discharge. DISCHARGE MEDICATIONS: 1. Vigamox eye drops one drop q.i.d, 2. Prednisolone one drop q.i.d, 3. POSTOPERATIVE ORDERS: The patient has to rest at home. No bending, No lifting, No watching Television tonight. POSTOPERATIVE FOLLOW UP: The patient will be followed in my office tomorrow morning at 7 o'clock. Hospital Course patient was admitted to hospital. She was started on IVF. her symptoms gradually improved with antiemetics and pain control. She was evaluated by GI with no further recommendation. patient was discharged in stable condition with plan to follow up with PCP in 1-2 weeks. Discharge Condition Upon Discharge: stable Discharge Disposition Patient was discharged to home Vinod Mccormick M.D. Jul 18, 2017 13:40
[2017-07-18] MEDS ORDERED: SIMVASTATIN20 MG ORAL (13:48)
[2017-07-18] MEDS ORDERED: METFORMIN HCL500 M1 ORAL (13:48)
[2017-07-18] MEDS ORDERED: NORVASC5 MG ORAL (13:48)
[2017-07-18] MEDS ORDERED: ASPIRIN-LOW81 MG ORAL (13:48)
--- NOTE | 2017-07-18 14:16 | General Progress Note ---
Assessment/Plan Assessment/Plan Assessment - resolved diarrhea - recent UTI Recommendations - IVF - push po - follow symptoms - d/c planning Subjective Allergies: Coded Allergies: AMITRIPTYLINE (Verified Allergy, Unknown, ANXIETY, 07/11/16) Subjective Feels OK no N/V tolerating PO no diarrhea today Objective Last 24 Hour Vital Signs Date Time Temp Pulse Resp B/P (MAP) Pulse Ox O2 Delivery O2 Flow Rate FiO2 07/18/17 12:00 97.9 80 18 138/86 95 97.9 07/18/17 09:20 75 142/77 07/18/17 08:00 98.1 75 19 142/77 96 98.1 07/18/17 04:00 97.0 72 18 142/85 96 Room Air 97.0 07/18/17 00:00 97.7 59 20 155/70 99 Room Air 97.7 07/17/17 20:01 97.0 69 19 152/95 100 97.0 07/17/17 16:00 97.9 53 18 137/73 95 97.9 Intake and Output 07/17/17 07/18/17 19:00 07:00 Intake Total 1020 ml Output Total 0 ml Balance 1020 ml 0 ml Intake Oral 1020 ml Output Stool Total 0 ml # Voids 2 3 Height (Feet): 5 Height (Inches): 3.00 Weight (Pounds): 180 Objective WDWN NCAT supple CTA RRR Abd soft ND NT no edema non focal PATY VENTURA Jul 18, 2017 14:16
--- NOTE | 2017-07-20 22:34 | Consultation ---
History of Present Illness General Date patient seen: Jul 17, 2017 Chief Complaint: Diarrhea Present Illness HPI 76y/o female with pmh of DM2, HTN, ischemic colitis, diverticulosis who presents with abd pain and diarrhea. the pt has anxiety, memory problems. and low energy Allergies: Coded Allergies: AMITRIPTYLINE (Verified Allergy, Unknown, ANXIETY, 07/11/16) Medication History Scheduled Amlodipine Besylate (Norvasc), 5 MG ORAL DAILY Amlodipine Besylate* (Amlodipine Besylate*), 5 MG ORAL DAILY, (Reported) Aspirin (Aspirin EC), 81 MG PO DAILY, (Reported) Aspirin (Aspirin EC), 81 MG ORAL DAILY Cefuroxime Axetil* (Cefuroxime*), 500 MG PO Q12HR Celecoxib* (Celebrex*), 200 MG ORAL DAILY, (Reported) Cyclosporine (Restasis), 1 DROP BOTH EYES EVERY 12 HOURS, (Reported) Linaclotide (Linzess), 145 MCG PO EVERY OTHER DAY, (Reported) Metformin Hcl* (Glucophage*), 500 MG PO BID, (Reported) Metformin Hcl* (Metformin Hcl*), 500 MG ORAL TWICE A DAY [place]-3 Fatty Acids ([place]-3), 1,000 MG PO DAILY, (Reported) Polyethylene Glycol 3350* (Polyethylene Glycol 3350*), 17 GM ORAL EVERY OTHER DAY, (Reported) Simvastatin (Zocor), 20 MG PO QHS, (Reported) Simvastatin (Zocor), 20 MG ORAL BEDTIME Valsartan (Diovan), 160 MG ORAL DAILY, (Reported) Scheduled PRN Diazepam* (Diazepam*), 10 MG ORAL for For Anxiety, (Reported) Hydrocodone Bit/Acetaminophen 10-325* ([place] 10-325*), 1 TAB ORAL for For Pain, (Reported) Morphine Sulfate* (Ms Contin*), 60 MG ORAL for For Pain, (Reported) Ondansetron Odt* (Zofran Odt*), 8 MG ORAL for Nausea & Vomiting, (Reported) Propylene Glycol/Peg 400/Pf (Systane 0.3-0.4% Eye Drops), 1 EACH OP FOUR TIMES A DAY PRN for Dry Eyes, (Reported) Zolpidem Tartrate* (Ambien*), 10 MG ORAL BEDTIME PRN for Insomnia, (Reported) Discontinued Medications Sulfasalazine* (Azulfidine*), 1,500 MG ORAL BID, (Reported) Discontinued Reason: Pt stopped taking med Tizanidine Hcl* (Zanaflex*), 4 MG ORAL THREE TIMES A DAY, (Reported) Discontinued Reason: Pt stopped taking med Patient History History Provided By: Patient, Medical Record, PMD Healthcare decision maker N Resuscitation status Full Code Advanced Directive on File Review of Systems Psychiatric: Reports: prior hx, anxiety, depressed feelings Physical Exam General Appearance: alert Neurologic: oriented x 3, responsive, depressed affect Height (Feet): 5 Height (Inches): 3.00 Weight (Pounds): 180 Assessment/Plan Status: stable Assessment/Plan anxiety d/o valium Otoniel Akins M.D. Jul 20, 2017 22:34
--- NOTE | 2017-07-20 22:35 | General Progress Note ---
Assessment/Plan Status: stable Assessment/Plan anxiety d/o valium prn Subjective Date patient seen: Jul 18, 2017 Neurologic/Psychiatric: Reports: anxiety, depressed, emotional problems Allergies: Coded Allergies: AMITRIPTYLINE (Verified Allergy, Unknown, ANXIETY, 07/11/16) Objective Height (Feet): 5 Height (Inches): 3.00 Weight (Pounds): 180 General Appearance: no apparent distress, alert Neurologic: oriented x 3, responsive, depressed affect Otoniel Mackey M.D. Jul 20, 2017 22:35
--- NOTE | 2017-07-26 17:18 | Cardiology Report ---
APPROVED REPORT EKG Measurement Heart [id number] Sinus rhythm with marked sinus arrhythmia Possible Left atrial enlargement Nonspecific T wave abnormality Abnormal ECG
== END 2017-07-18 15:15 | disposition home or self-care (01) ==
LOC: EMR 11:39 → INTOOBSV 13:07 → 4W 13:07 → EDBEDREQ 14:34 → 4W 22:31
DX: K52.89 Other specified noninfective gastroenteritis and colitis (principal); E11.9 Type 2 diabetes mellitus without complications; I10 Essential (primary) hypertension; K57.90 Diverticulosis of intestine, part unspecified, without perforation or abscess without bleeding; F41.9 Anxiety disorder, unspecified; Z79.82 Long term (current) use of aspirin; N39.0 Urinary tract infection, site not specified; F06.8 Other specified mental disorders due to known physiological condition; Z87.19 Personal history of other diseases of the digestive system
CPT/HCPCS: 36415; 71045; 74018; 80048; 80053; 80076; 81003; 82550; 82962; 83690; 83735; 84484; 85025; 85610; 85730; 87086; 93005; 96360; 96372; 96374; 96376; 99285; G0378; J0692; J1644; J1815; J2270; J2405; J3480; C8957